=== PATIENT | female | born 2000 | race Caucasian/White ===

== ENCOUNTER 2022-11-19 13:46 | Outpatient (CLI) | payer OTHER, SELFPAY ==
[2022-11-19 14:57] LABS: Beta HCG Quantitative < 2.39 mIU/ML
== END 2022-11-19 13:47 | disposition home or self-care (01) ==
LOC: ANHLAB 13:49
PROVIDERS: Visit Provider Obstetrics & Gynecology
DX: N92.6 Irregular menstruation, unspecified (principal)
CPT/HCPCS: 36415; 84702

== ENCOUNTER 2023-08-13 11:02 | Outpatient (CLI) | payer OTHER, SELFPAY ==
[2023-08-14 06:44] LABS: Progesterone <0.5 ng/mL
[2023-08-14 07:49] LABS: DHEA-Sulfate 208 mcg/dL (44-286)
[2023-08-14 08:14] LABS: FSH 6.4 mIU/mL; Prolactin 14.7 ng/mL
[2023-08-17 18:43] LABS: Testosterone Free 5 pg/mL (0.1-6.4); Testosterone Total 52 ng/dL (2-45)
[2023-08-21 16:15] LABS: Estradiol, Ultrasensitive 55 pg/mL
== END 2023-08-13 11:03 | disposition home or self-care (01) ==
LOC: ANHLAB 11:05
PROVIDERS: Visit Provider Obstetrics & Gynecology
DX: N92.6 Irregular menstruation, unspecified (principal)
CPT/HCPCS: 36415; 82627; 82670; 83001; 83498; 84144; 84146; 84402; 84403; 84443

== ENCOUNTER 2023-12-04 09:41 | Outpatient (CLI) | payer OTHER, SELFPAY ==
[2023-12-04 10:06] LABS: Cholesterol 247 mg/dL (0-200); HDL Direct 101 mg/dL; Triglycerides 217 mg/dL (<150)
[2023-12-04 10:11] LABS: Hemoglobin A1C 4.6 % (<5.7)
[2023-12-04 10:16] LABS: LDL Cholesterol Direct 116 mg/dL
[2023-12-05 12:49] LABS: Insulin Level Total 10.3 uIU/mL
[2023-12-09 17:13] LABS: Testosterone Total 65 ng/dL (2-45)
[2023-12-10 21:23] LABS: Free Insulin 7.7 uIU/mL (1.5-14.9)
== END 2023-12-04 09:42 | disposition home or self-care (01) ==
PROVIDERS: Visit Provider Obstetrics & Gynecology
DX: E28.2 Polycystic ovarian syndrome (principal); R63.5 Abnormal weight gain
CPT/HCPCS: 36415; 80061; 83036; 83525; 83527; 84403